=== PATIENT | female | born 1970 | race Caucasian/White ===

== ENCOUNTER 2021-01-31 12:08 | Inpatient (IN) | payer OTHER ==
[2021-01-31] MEDS ORDERED: P-EPHED 60MG/TRIPROLIDI 2.5MG TABLET PO PRN (14:01)
[2021-01-31] MEDS ORDERED: guaiFENesin 200 MG/10 ML 10 ML UNIT-DOSE CUPS PO PRN (14:01)
[2021-01-31] MEDS ORDERED: LOPERAMIDE HCL 2 MG CAPSULE PO PRN (14:01)
[2021-01-31] MEDS ORDERED: MAGNESIUM CITRATE 300 ML BOTTLE PO PRN (14:01)
[2021-01-31] MEDS ORDERED: NICOTINE 7 MG/24 HOURS TOPICAL PATCH TD SCH (14:15)
[2021-01-31 14:21] VITALS: BMI 21.9
[2021-01-31] MEDS: PRENATAL VITAMINS W/ FOLIC ACID TABLET (FP) PO SCH (15:51)
[2021-01-31] MEDS ORDERED: TUBERCULIN PPD 5 TU/0.1ML VIAL ID ONE (15:52)
[2021-01-31 17:09] LABS: HEMATOCRIT 39.2 % (32.4-45.2); HEMOGLOBIN 12.8 GM/dL (10.7-15.3); MCH 28.5 pg (25.7-33.7); MCHC 32.6 g/dl (32.0-36.0); MEAN CELL VOLUME 87.2 fl (80-96); PLATELET COUNT 248 10^3/uL (134-434); RBC 4.49 M/mm3 (3.60-5.2); RDW 14.1 % (11.6-15.6); WHITE BLOOD COUNT 5.1 K/mm3 (4.0-10.0)
[2021-01-31 17:12] LABS: ALBUMIN 3.1 g/dl (3.4-5.0); BLOOD UREA NITROGEN 14.8 mg/dL (7-18); CALCIUM 8.6 mg/dL (8.5-10.1)
[2021-01-31 17:17] LABS: BILIRUBIN,TOTAL 0.2 mg/dL (0.2-1); TOT PROT 6.9 g/dl (6.4-8.2)
[2021-01-31 17:39] LABS: SYPHILIS W/ RPR CONF NON-REACTIVE (NONREACTIVE)
[2021-01-31] MEDS ORDERED: hydrOXYzine PAMOATE 25 MG CAPSULE (FP) PO SCH (18:00)
[2021-01-31 18:06] LABS: HIV INTERPRETATION NEGATIVE (NEGATIVE)
[2021-01-31] MEDS: NICOTINE 10 MG CARTRIDGE (INHALER) IH PRN (18:17)
[2021-01-31] MEDS: THIAMINE HCL 100 MG TABLET (FP) PO SCH (21:51)
[2021-01-31] MEDS: MELATONIN 5 MG TABLETS PO SCH (21:52)
[2021-02-01] MEDS ORDERED: methaDONE HCL 10 MG TABLET ONE (07:16)
[2021-02-01] MEDS ORDERED: methaDONE HCL 40 MG DISPERSABLE TABLET ONE (07:17)
[2021-02-01] MEDS ORDERED: methaDONE HCL 40 MG DISPERSABLE TABLET PO SCH (10:00)
[2021-02-01] MEDS: NICOTINE 14 MG/24 HOURS TOPICAL PATCH TD SCH (11:13)
[2021-02-01] MEDS: PRENATAL VITAMINS W/ FOLIC ACID TABLET (FP) PO SCH (11:14)
[2021-02-01] MEDS: NICOTINE 10 MG CARTRIDGE (INHALER) IH PRN (11:14)
[2021-02-01] MEDS ORDERED: NICOTINE POLACRILEX 2 MG GUM BUC PRN (12:51)
[2021-02-01] MEDS: MELATONIN 5 MG TABLETS PO SCH (22:16)
[2021-02-01] MEDS: THIAMINE HCL 100 MG TABLET (FP) PO SCH (22:16)
[2021-02-01] MEDS: BACITRACIN 0.9 GM PACKET TP SCH (22:16)
[2021-02-01 23:13] LABS: EPI CELLS 15 /uL (0-25.1); HYALINE CASTS 4 /uL (0-3.1); PH,URINE 5.5 (5.0-8.0); URINE APPEARANCE CLOUDY; URINE BACTERIA 522 /uL (0-1359); URINE BILIRUBIN NEGATIVE (NEGATIVE); URINE COLOR YELLOW; URINE GLUCOSE (UA) NEGATIVE (NEGATIVE); URINE KETONE TRACE (NEGATIVE); URINE LEUK ESTERASE 3+ (NEGATIVE); URINE NITRITE NEGATIVE (NEGATIVE); URINE PROTEIN NEGATIVE (NEGATIVE); URINE RBC 18 /uL (0-23.9); URINE UROBILINOGEN 0.2 mg/dL (0.2-1.0); URINE WBC 708 /uL (0-25.8)
[2021-02-02] MEDS ORDERED: methaDONE HCL 10 MG TABLET ONE (03:41)
[2021-02-02] MEDS ORDERED: methaDONE HCL 40 MG DISPERSABLE TABLET ONE (03:42)
[2021-02-02] MEDS: BACITRACIN 0.9 GM PACKET TP SCH ×2 (10:44→21:44)
[2021-02-02] MEDS: NICOTINE 14 MG/24 HOURS TOPICAL PATCH TD SCH (10:44)
[2021-02-02] MEDS: PRENATAL VITAMINS W/ FOLIC ACID TABLET (FP) PO SCH (10:44)
[2021-02-02] MEDS: MELATONIN 5 MG TABLETS PO SCH (21:41)
[2021-02-02] MEDS: THIAMINE HCL 100 MG TABLET (FP) PO SCH (21:41)
[2021-02-02] MEDS: ACETAMINOPHEN 325 MG TABLET (FP) PO PRN (21:42)
[2021-02-03] MEDS ORDERED: methaDONE HCL 10 MG TABLET ONE (03:34)
[2021-02-03] MEDS ORDERED: methaDONE HCL 40 MG DISPERSABLE TABLET ONE (03:35)
[2021-02-03] MEDS: PRENATAL VITAMINS W/ FOLIC ACID TABLET (FP) PO SCH (10:55)
[2021-02-03] MEDS: BACITRACIN 0.9 GM PACKET TP SCH ×2 (10:55→22:08)
[2021-02-03] MEDS: NICOTINE 10 MG CARTRIDGE (INHALER) IH PRN (10:56)
[2021-02-03] MEDS: NICOTINE 14 MG/24 HOURS TOPICAL PATCH TD SCH (10:56)
[2021-02-03] MEDS: MAGNESIUM HYDROX 2400MG/30ML ORAL SUSPENSION 30 ML CUP PO PRN (11:09)
[2021-02-03] MEDS: MELATONIN 5 MG TABLETS PO SCH (22:08)
[2021-02-03] MEDS: THIAMINE HCL 100 MG TABLET (FP) PO SCH (22:08)
[2021-02-04] MEDS ORDERED: methaDONE HCL 40 MG DISPERSABLE TABLET ONE (04:11)
[2021-02-04] MEDS ORDERED: methaDONE HCL 10 MG TABLET ONE (04:11)
[2021-02-04] MEDS: NICOTINE 14 MG/24 HOURS TOPICAL PATCH TD SCH (10:26)
[2021-02-04] MEDS: PRENATAL VITAMINS W/ FOLIC ACID TABLET (FP) PO SCH (10:26)
[2021-02-04] MEDS: BACITRACIN 0.9 GM PACKET TP SCH ×2 (10:26→22:23)
[2021-02-04] MEDS: MELATONIN 5 MG TABLETS PO SCH (22:24)
[2021-02-04] MEDS: ACETAMINOPHEN 325 MG TABLET (FP) PO PRN (22:25)
[2021-02-04] MEDS: THIAMINE HCL 100 MG TABLET (FP) PO SCH (22:26)
[2021-02-05] MEDS: IBUPROFEN 400 MG TABLET (FP) PO PRN (01:59)
[2021-02-05] MEDS ORDERED: methaDONE HCL 40 MG DISPERSABLE TABLET ONE (04:06)
[2021-02-05] MEDS ORDERED: methaDONE HCL 10 MG TABLET ONE (04:06)
[2021-02-05] MEDS: NICOTINE 14 MG/24 HOURS TOPICAL PATCH TD SCH (10:35)
[2021-02-05] MEDS: PRENATAL VITAMINS W/ FOLIC ACID TABLET (FP) PO SCH (10:35)
[2021-02-05] MEDS: BACITRACIN 0.9 GM PACKET TP SCH ×2 (10:35→22:08)
[2021-02-05] MEDS: NICOTINE 10 MG CARTRIDGE (INHALER) IH PRN (21:41)
[2021-02-05] MEDS: THIAMINE HCL 100 MG TABLET (FP) PO SCH (22:08)
[2021-02-05] MEDS: MELATONIN 5 MG TABLETS PO SCH (22:08)
[2021-02-06] MEDS ORDERED: methaDONE HCL 10 MG TABLET ONE (03:24)
[2021-02-06] MEDS ORDERED: methaDONE HCL 40 MG DISPERSABLE TABLET ONE (03:24)
[2021-02-06] MEDS: BACITRACIN 0.9 GM PACKET TP SCH ×2 (10:59→22:03)
[2021-02-06] MEDS: MAG HYDROX/AL HYDROX/SIMETH 30 ML UNIT-DOSE CUP PO PRN (11:00)
[2021-02-06] MEDS: NICOTINE 14 MG/24 HOURS TOPICAL PATCH TD SCH (11:00)
[2021-02-06] MEDS: PRENATAL VITAMINS W/ FOLIC ACID TABLET (FP) PO SCH (11:00)
[2021-02-06] MEDS: MELATONIN 5 MG TABLETS PO SCH (22:03)
[2021-02-06] MEDS: THIAMINE HCL 100 MG TABLET (FP) PO SCH (22:03)
[2021-02-07] MEDS ORDERED: methaDONE HCL 10 MG TABLET ONE (04:18)
[2021-02-07] MEDS ORDERED: methaDONE HCL 40 MG DISPERSABLE TABLET ONE (04:18)
[2021-02-07] MEDS: NICOTINE 14 MG/24 HOURS TOPICAL PATCH TD SCH (10:33)
[2021-02-07] MEDS: BACITRACIN 0.9 GM PACKET TP SCH ×2 (10:33→22:20)
[2021-02-07] MEDS: PRENATAL VITAMINS W/ FOLIC ACID TABLET (FP) PO SCH (10:33)
[2021-02-07] MEDS ORDERED: FUROSEMIDE 20 MG TABLET (FP) PO ONE (11:17)
[2021-02-07] MEDS: MELATONIN 5 MG TABLETS PO SCH (22:19)
[2021-02-07] MEDS: THIAMINE HCL 100 MG TABLET (FP) PO SCH (22:19)
[2021-02-07] MEDS: IBUPROFEN 400 MG TABLET (FP) PO PRN (22:21)
[2021-02-08] MEDS ORDERED: methaDONE HCL 10 MG TABLET ONE (03:15)
[2021-02-08] MEDS ORDERED: methaDONE HCL 40 MG DISPERSABLE TABLET ONE (03:16)
[2021-02-08] MEDS: PRENATAL VITAMINS W/ FOLIC ACID TABLET (FP) PO SCH (10:38)
[2021-02-08] MEDS: ACETAMINOPHEN 325 MG TABLET (FP) PO PRN (10:38)
[2021-02-08] MEDS: NICOTINE 14 MG/24 HOURS TOPICAL PATCH TD SCH (10:38)
[2021-02-08] MEDS: BACITRACIN 0.9 GM PACKET TP SCH ×2 (10:38→22:00)
[2021-02-08] MEDS: NICOTINE 10 MG CARTRIDGE (INHALER) IH PRN (10:38)
[2021-02-08] MEDS: THIAMINE HCL 100 MG TABLET (FP) PO SCH (21:59)
[2021-02-08] MEDS: MELATONIN 5 MG TABLETS PO SCH (21:59)
[2021-02-09] MEDS ORDERED: methaDONE HCL 10 MG TABLET ONE (07:08)
[2021-02-09] MEDS ORDERED: methaDONE HCL 40 MG DISPERSABLE TABLET ONE (07:08)
[2021-02-09] MEDS: MAG HYDROX/AL HYDROX/SIMETH 30 ML UNIT-DOSE CUP PO PRN (07:09)
[2021-02-09] MEDS: BACITRACIN 0.9 GM PACKET TP SCH ×2 (10:43→22:13)
[2021-02-09] MEDS: NICOTINE 10 MG CARTRIDGE (INHALER) IH PRN (10:44)
[2021-02-09] MEDS: NICOTINE 14 MG/24 HOURS TOPICAL PATCH TD SCH (10:44)
[2021-02-09] MEDS: PRENATAL VITAMINS W/ FOLIC ACID TABLET (FP) PO SCH (10:44)
[2021-02-09] MEDS: MELATONIN 5 MG TABLETS PO SCH (22:13)
[2021-02-09] MEDS: THIAMINE HCL 100 MG TABLET (FP) PO SCH (22:13)
[2021-02-09] MEDS: MAGNESIUM HYDROX 2400MG/30ML ORAL SUSPENSION 30 ML CUP PO PRN (22:15)
[2021-02-10] MEDS ORDERED: methaDONE HCL 10 MG TABLET ONE (02:11)
[2021-02-10] MEDS ORDERED: methaDONE HCL 40 MG DISPERSABLE TABLET ONE (02:12)
[2021-02-10] MEDS: PRENATAL VITAMINS W/ FOLIC ACID TABLET (FP) PO SCH (11:08)
[2021-02-10] MEDS: NICOTINE 14 MG/24 HOURS TOPICAL PATCH TD SCH (11:08)
[2021-02-10] MEDS: BACITRACIN 0.9 GM PACKET TP SCH ×2 (11:08→23:26)
[2021-02-10] MEDS: MELATONIN 5 MG TABLETS PO SCH (22:02)
[2021-02-10] MEDS: THIAMINE HCL 100 MG TABLET (FP) PO SCH (22:02)
[2021-02-10] MEDS: MAG HYDROX/AL HYDROX/SIMETH 30 ML UNIT-DOSE CUP PO PRN (22:03)
[2021-02-11] MEDS ORDERED: methaDONE HCL 10 MG TABLET ONE (04:25)
[2021-02-11] MEDS ORDERED: methaDONE HCL 40 MG DISPERSABLE TABLET ONE (04:25)
[2021-02-11] MEDS: BACITRACIN 0.9 GM PACKET TP SCH ×2 (10:39→21:56)
[2021-02-11] MEDS: NICOTINE 14 MG/24 HOURS TOPICAL PATCH TD SCH (10:39)
[2021-02-11] MEDS: PRENATAL VITAMINS W/ FOLIC ACID TABLET (FP) PO SCH (10:39)
[2021-02-11] MEDS: NICOTINE 10 MG CARTRIDGE (INHALER) IH PRN (10:39)
[2021-02-11] MEDS: MELATONIN 5 MG TABLETS PO SCH (21:55)
[2021-02-11] MEDS: THIAMINE HCL 100 MG TABLET (FP) PO SCH (21:55)
[2021-02-11] MEDS: MAG HYDROX/AL HYDROX/SIMETH 30 ML UNIT-DOSE CUP PO PRN (21:56)
[2021-02-12] MEDS ORDERED: methaDONE HCL 10 MG TABLET ONE (03:40)
[2021-02-12] MEDS ORDERED: methaDONE HCL 40 MG DISPERSABLE TABLET ONE (03:40)
[2021-02-12] MEDS: MAG HYDROX/AL HYDROX/SIMETH 30 ML UNIT-DOSE CUP PO PRN (10:43)
[2021-02-12] MEDS: PRENATAL VITAMINS W/ FOLIC ACID TABLET (FP) PO SCH (10:43)
[2021-02-12] MEDS: BACITRACIN 0.9 GM PACKET TP SCH ×2 (10:43→21:58)
[2021-02-12] MEDS: NICOTINE 14 MG/24 HOURS TOPICAL PATCH TD SCH (10:43)
[2021-02-12] MEDS: THIAMINE HCL 100 MG TABLET (FP) PO SCH (21:58)
[2021-02-12] MEDS: MELATONIN 5 MG TABLETS PO SCH (21:58)
[2021-02-13] MEDS ORDERED: methaDONE HCL 40 MG DISPERSABLE TABLET ONE (02:27)
[2021-02-13] MEDS ORDERED: methaDONE HCL 10 MG TABLET ONE (02:27)
[2021-02-13] MEDS: MAG HYDROX/AL HYDROX/SIMETH 30 ML UNIT-DOSE CUP PO PRN ×2 (11:08→21:19)
[2021-02-13] MEDS: PRENATAL VITAMINS W/ FOLIC ACID TABLET (FP) PO SCH (11:09)
[2021-02-13] MEDS: NICOTINE 14 MG/24 HOURS TOPICAL PATCH TD SCH (11:09)
[2021-02-13] MEDS: BACITRACIN 0.9 GM PACKET TP SCH ×2 (11:09→21:19)
[2021-02-13] MEDS: THIAMINE HCL 100 MG TABLET (FP) PO SCH (21:19)
[2021-02-13] MEDS: MELATONIN 5 MG TABLETS PO SCH (21:20)
[2021-02-14] MEDS ORDERED: methaDONE HCL 10 MG TABLET ONE (07:14)
[2021-02-14] MEDS ORDERED: methaDONE HCL 40 MG DISPERSABLE TABLET ONE (07:14)
[2021-02-14] MEDS ORDERED: COLLOIDAL OATMEAL 1 BAR EACH TP PRN (09:15)
[2021-02-14] MEDS: BACITRACIN 0.9 GM PACKET TP SCH ×2 (10:54→22:04)
[2021-02-14] MEDS: PRENATAL VITAMINS W/ FOLIC ACID TABLET (FP) PO SCH (10:54)
[2021-02-14] MEDS: NICOTINE 14 MG/24 HOURS TOPICAL PATCH TD SCH (10:54)
[2021-02-14] MEDS: MAG HYDROX/AL HYDROX/SIMETH 30 ML UNIT-DOSE CUP PO PRN (10:55)
[2021-02-14] MEDS: ACETAMINOPHEN 325 MG TABLET (FP) PO PRN (12:12)
[2021-02-14] MEDS ORDERED: SIMETHICONE 80 MG TAB.CHEW (FP) PO PRN (12:54)
[2021-02-14] MEDS ORDERED: ACETAMINOPHEN 325 MG TABLET (FP) PO PRN (12:55)
[2021-02-14] MEDS: MELATONIN 5 MG TABLETS PO SCH (22:04)
[2021-02-14] MEDS: THIAMINE HCL 100 MG TABLET (FP) PO SCH (22:05)
[2021-02-15] MEDS ORDERED: methaDONE HCL 40 MG DISPERSABLE TABLET ONE (03:32)
[2021-02-15] MEDS ORDERED: methaDONE HCL 10 MG TABLET ONE (03:32)
[2021-02-15] MEDS: NICOTINE 14 MG/24 HOURS TOPICAL PATCH TD SCH (10:47)
[2021-02-15] MEDS: BACITRACIN 0.9 GM PACKET TP SCH ×2 (10:47→21:39)
[2021-02-15] MEDS: PRENATAL VITAMINS W/ FOLIC ACID TABLET (FP) PO SCH (10:47)
[2021-02-15] MEDS: MELATONIN 5 MG TABLETS PO SCH (21:39)
[2021-02-15] MEDS: THIAMINE HCL 100 MG TABLET (FP) PO SCH (21:39)
[2021-02-16] MEDS: ACETAMINOPHEN 325 MG TABLET (FP) PO PRN (01:49)
[2021-02-16] MEDS ORDERED: methaDONE HCL 10 MG TABLET ONE (03:05)
[2021-02-16] MEDS ORDERED: methaDONE HCL 40 MG DISPERSABLE TABLET ONE (03:05)
[2021-02-16] MEDS: PRENATAL VITAMINS W/ FOLIC ACID TABLET (FP) PO SCH (11:19)
[2021-02-16] MEDS: NICOTINE 14 MG/24 HOURS TOPICAL PATCH TD SCH (11:19)
[2021-02-16] MEDS: BACITRACIN 0.9 GM PACKET TP SCH ×2 (11:19→22:08)
[2021-02-16] MEDS: MELATONIN 5 MG TABLETS PO SCH (22:08)
[2021-02-16] MEDS: THIAMINE HCL 100 MG TABLET (FP) PO SCH (22:09)
[2021-02-17] MEDS ORDERED: methaDONE HCL 10 MG TABLET ONE (04:05)
[2021-02-17] MEDS ORDERED: methaDONE HCL 40 MG DISPERSABLE TABLET ONE (04:06)
[2021-02-17] MEDS: BACITRACIN 0.9 GM PACKET TP SCH ×2 (10:33→22:13)
[2021-02-17] MEDS: NICOTINE 14 MG/24 HOURS TOPICAL PATCH TD SCH (11:20)
[2021-02-17] MEDS: PRENATAL VITAMINS W/ FOLIC ACID TABLET (FP) PO SCH (11:21)
[2021-02-17] MEDS: TOLNAFTATE 1% CREAM 15 GM TUBE TP SCH (22:13)
[2021-02-17] MEDS: THIAMINE HCL 100 MG TABLET (FP) PO SCH (22:13)
[2021-02-17] MEDS: MELATONIN 5 MG TABLETS PO SCH (22:13)
[2021-02-18] MEDS ORDERED: methaDONE HCL 40 MG DISPERSABLE TABLET ONE (03:13)
[2021-02-18] MEDS ORDERED: methaDONE HCL 10 MG TABLET ONE (03:13)
[2021-02-18] MEDS: BACITRACIN 0.9 GM PACKET TP SCH ×2 (11:38→22:15)
[2021-02-18] MEDS: TOLNAFTATE 1% CREAM 15 GM TUBE TP SCH ×2 (11:39→22:15)
[2021-02-18] MEDS: NICOTINE 14 MG/24 HOURS TOPICAL PATCH TD SCH (11:39)
[2021-02-18] MEDS: PRENATAL VITAMINS W/ FOLIC ACID TABLET (FP) PO SCH (11:39)
[2021-02-18] MEDS: THIAMINE HCL 100 MG TABLET (FP) PO SCH (22:15)
[2021-02-18] MEDS: MELATONIN 5 MG TABLETS PO SCH (22:15)
[2021-02-19] MEDS ORDERED: methaDONE HCL 10 MG TABLET ONE (03:20)
[2021-02-19] MEDS ORDERED: methaDONE HCL 40 MG DISPERSABLE TABLET ONE (03:20)
[2021-02-19] MEDS: PRENATAL VITAMINS W/ FOLIC ACID TABLET (FP) PO SCH (10:32)
[2021-02-19] MEDS: NICOTINE 14 MG/24 HOURS TOPICAL PATCH TD SCH (10:33)
[2021-02-19] MEDS: TOLNAFTATE 1% CREAM 15 GM TUBE TP SCH ×2 (10:33→22:08)
[2021-02-19] MEDS: BACITRACIN 0.9 GM PACKET TP SCH ×2 (10:33→22:08)
[2021-02-19] MEDS: ACETAMINOPHEN 325 MG TABLET (FP) PO PRN (12:18)
[2021-02-19] MEDS: MELATONIN 5 MG TABLETS PO SCH (22:08)
[2021-02-19] MEDS: THIAMINE HCL 100 MG TABLET (FP) PO SCH (22:08)
[2021-02-20] MEDS ORDERED: methaDONE HCL 10 MG TABLET ONE (05:36)
[2021-02-20] MEDS ORDERED: methaDONE HCL 40 MG DISPERSABLE TABLET ONE (05:36)
[2021-02-20] MEDS: TOLNAFTATE 1% CREAM 15 GM TUBE TP SCH ×2 (10:39→22:50)
[2021-02-20] MEDS: PRENATAL VITAMINS W/ FOLIC ACID TABLET (FP) PO SCH (10:40)
[2021-02-20] MEDS: NICOTINE 14 MG/24 HOURS TOPICAL PATCH TD SCH (10:40)
[2021-02-20] MEDS: BACITRACIN 0.9 GM PACKET TP SCH ×2 (10:40→22:49)
[2021-02-20] MEDS: NICOTINE 10 MG CARTRIDGE (INHALER) IH PRN (16:44)
[2021-02-20] MEDS: ACETAMINOPHEN 325 MG TABLET (FP) PO PRN (21:53)
[2021-02-20] MEDS: THIAMINE HCL 100 MG TABLET (FP) PO SCH (22:50)
[2021-02-20] MEDS: MELATONIN 5 MG TABLETS PO SCH (22:50)
[2021-02-21] MEDS ORDERED: methaDONE HCL 40 MG DISPERSABLE TABLET PO SCH (06:40)
[2021-02-21] MEDS ORDERED: methaDONE HCL 40 MG DISPERSABLE TABLET ONE (06:55)
[2021-02-21] MEDS ORDERED: methaDONE HCL 10 MG TABLET ONE (06:55)
[2021-02-21 07:32] VITALS: BP 93/45; PULSE 68; TEMP 97.9
[2021-02-21] MEDS: NICOTINE 14 MG/24 HOURS TOPICAL PATCH TD SCH (10:36)
[2021-02-21] MEDS: NICOTINE 10 MG CARTRIDGE (INHALER) IH PRN (10:36)
[2021-02-21] MEDS: PRENATAL VITAMINS W/ FOLIC ACID TABLET (FP) PO SCH (10:37)
[2021-02-21] MEDS: BACITRACIN 0.9 GM PACKET TP SCH (10:37)
[2021-02-21] MEDS: TOLNAFTATE 1% CREAM 15 GM TUBE TP SCH (10:39)
== END 2021-02-21 11:25 | disposition home or self-care (01) | DRG 772 ==
LOC: YASAS 12:08 → Y5N 14:25
PROVIDERS: ADMIT Allergy & Immunology; ATTEND Allergy & Immunology
PROC: HZ42ZZZ Group Counseling for Substance Abuse Treatment, Cognitive-Behavioral (ICD-10-PCS; principal; 2021-01-31)
DX: F10.20 Alcohol dependence, uncomplicated (principal); F11.20 Opioid dependence, uncomplicated; F14.20 Cocaine dependence, uncomplicated; F17.210 Nicotine dependence, cigarettes, uncomplicated; F25.9 Schizoaffective disorder, unspecified; F19.282 Other psychoactive substance dependence with psychoactive substance-induced sleep disorder; F19.280 Other psychoactive substance dependence with psychoactive substance-induced anxiety disorder; R60.0 Localized edema; M06.9 Rheumatoid arthritis, unspecified; M19.90 Unspecified osteoarthritis, unspecified site; G35 Multiple sclerosis; M54.59 Other low back pain; G89.29 Other chronic pain; M51.37 Other intervertebral disc degeneration, lumbosacral region; S61.001A Unspecified open wound of right thumb without damage to nail, initial encounter; X58.XXXA Exposure to other specified factors, initial encounter; Y93.9 Activity, unspecified; Y92.9 Unspecified place or not applicable; R26.2 Difficulty in walking, not elsewhere classified; Z99.89 Dependence on other enabling machines and devices; Z88.0 Allergy status to penicillin; Z62.810 Personal history of physical and sexual abuse in childhood; Z91.51 Personal history of suicidal behavior; Z56.0 Unemployment, unspecified
CPT/HCPCS: 36415; 80053; 81003; 81025; 85027; 86780; 86803; 87389; 87522; 87811; C9803; U0003; U0005

== ENCOUNTER 2022-04-27 11:01 | Inpatient (IN) | payer OTHER ==
[2022-04-27] MEDS ORDERED: MAGNESIUM HYDROX 2400MG/30ML ORAL SUSPENSION 30 ML CUP PO PRN (11:51)
[2022-04-27] MEDS ORDERED: NALOXONE HCL (KLOXXADO) 8 MG SPRAY NS PRN (11:51)
[2022-04-27] MEDS ORDERED: LOPERAMIDE HCL 2 MG CAPSULE PO PRN (11:51)
[2022-04-27] MEDS ORDERED: P-EPHED 60MG/TRIPROLIDI 2.5MG TABLET PO PRN (11:51)
[2022-04-27] MEDS ORDERED: hydrOXYzine PAMOATE 25 MG CAPSULE (FP) PO PRN (11:51)
[2022-04-27] MEDS ORDERED: guaiFENesin 200 MG/10 ML 10 ML UNIT-DOSE CUPS PO PRN (11:51)
[2022-04-27] MEDS ORDERED: BENZOCAINE/MENTHOL (CHLORASEPTIC ) LOZENGE MM PRN (11:51)
[2022-04-27] MEDS ORDERED: POLYETHYLENE GLYCOL (HEALTHYLAX) 3350 17 GM PACKET PO PRN (11:51)
[2022-04-27] MEDS: NICOTINE 7 MG/24 HOURS TOPICAL PATCH TD SCH (12:00)
[2022-04-27] MEDS: PRENATAL VITAMINS W/ FOLIC ACID TABLET (FP) PO SCH (12:20)
[2022-04-27 17:33] LABS: HEMATOCRIT 39.3 % (32.4-45.2); HEMOGLOBIN 12.8 GM/dL (10.7-15.3); MCH 28.1 pg (25.7-33.7); MCHC 32.6 g/dl (32.0-36.0); MEAN CELL VOLUME 86.3 fl (80-96); MEAN PLT VOLUME 9.4 fl (7.5-11.1); PLATELET COUNT 204 10^3/uL (134-434); RBC 4.56 M/mm3 (3.60-5.2); RDW 14.2 % (11.6-15.6)
[2022-04-27 17:39] LABS: CALCIUM 8.6 mg/dL (8.5-10.1)
[2022-04-27 17:40] LABS: ALBUMIN 3.7 g/dl (3.4-5.0); BLOOD UREA NITROGEN 18.5 mg/dL (7-18)
[2022-04-27 17:43] LABS: CREATININE 0.8 mg/dL (0.55-1.3)
[2022-04-27 17:44] LABS: BILIRUBIN,TOTAL 0.5 mg/dL (0.2-1); TOT PROT 7.4 g/dl (6.4-8.2)
[2022-04-27 18:10] LABS: SYPHILIS W/ RPR CONF NON-REACTIVE (NONREACTIVE)
[2022-04-27] MEDS: THIAMINE HCL 100 MG TABLET (FP) PO SCH (21:33)
[2022-04-27] MEDS: MELATONIN 5 MG TABLETS PO SCH (21:33)
[2022-04-28] MEDS ORDERED: methaDONE HCL 10 MG TABLET PO SCH (09:00)
[2022-04-28] MEDS: PRENATAL VITAMINS W/ FOLIC ACID TABLET (FP) PO SCH (10:16)
[2022-04-28] MEDS: methaDONE HCL 40 MG DISPERSABLE TABLET PO SCH (10:16)
[2022-04-28] MEDS: NICOTINE 7 MG/24 HOURS TOPICAL PATCH TD SCH (10:17)
[2022-04-28] MEDS: NICOTINE 10 MG CARTRIDGE (INHALER) IH PRN (10:18)
[2022-04-28] MEDS: LACTULOSE 20 GM/30 ML UDC (FOR ORAL USE ONLY) PO SCH ×2 (11:01→22:07)
[2022-04-28] MEDS: MELATONIN 5 MG TABLETS PO SCH (22:07)
[2022-04-28] MEDS: THIAMINE HCL 100 MG TABLET (FP) PO SCH (22:07)
[2022-04-29 00:08] LABS: URINE APPEARANCE CLEAR; URINE BILIRUBIN NEGATIVE (NEGATIVE); URINE COLOR YELLOW; URINE GLUCOSE (UA) NEGATIVE (NEGATIVE); URINE KETONE NEGATIVE (NEGATIVE); URINE LEUK ESTERASE NEGATIVE (NEGATIVE); URINE NITRITE NEGATIVE (NEGATIVE); URINE PROTEIN NEGATIVE (NEGATIVE); URINE UROBILINOGEN 0.2 mg/dL (0.2-1.0)
[2022-04-29] MEDS: methaDONE HCL 40 MG DISPERSABLE TABLET PO SCH (06:15)
[2022-04-29] MEDS: PRENATAL VITAMINS W/ FOLIC ACID TABLET (FP) PO SCH (10:10)
[2022-04-29] MEDS: NICOTINE 7 MG/24 HOURS TOPICAL PATCH TD SCH (10:10)
[2022-04-29] MEDS: LACTULOSE 20 GM/30 ML UDC (FOR ORAL USE ONLY) PO SCH ×2 (10:11→22:16)
[2022-04-29] MEDS: MELATONIN 5 MG TABLETS PO SCH (22:16)
[2022-04-29] MEDS: THIAMINE HCL 100 MG TABLET (FP) PO SCH (22:16)
[2022-04-30] MEDS: MAG HYDROX/AL HYDROX/SIMETH 30 ML UNIT-DOSE CUP PO PRN ×2 (00:02→21:36)
[2022-04-30] MEDS: IBUPROFEN 400 MG TABLET (FP) PO PRN ×2 (02:59→21:35)
[2022-04-30] MEDS: methaDONE HCL 40 MG DISPERSABLE TABLET PO SCH (06:08)
[2022-04-30] MEDS: NICOTINE 10 MG CARTRIDGE (INHALER) IH PRN (10:19)
[2022-04-30] MEDS: LACTULOSE 20 GM/30 ML UDC (FOR ORAL USE ONLY) PO SCH ×2 (10:19→21:33)
[2022-04-30] MEDS: PRENATAL VITAMINS W/ FOLIC ACID TABLET (FP) PO SCH (10:19)
[2022-04-30] MEDS: NICOTINE 7 MG/24 HOURS TOPICAL PATCH TD SCH (10:19)
[2022-04-30] MEDS: MELATONIN 5 MG TABLETS PO SCH (21:33)
[2022-04-30] MEDS: THIAMINE HCL 100 MG TABLET (FP) PO SCH (21:33)
[2022-05-01] MEDS: ACETAMINOPHEN 325 MG TABLET (FP) PO PRN (02:05)
[2022-05-01] MEDS: methaDONE HCL 40 MG DISPERSABLE TABLET PO SCH (06:07)
[2022-05-01] MEDS: LACTULOSE 20 GM/30 ML UDC (FOR ORAL USE ONLY) PO SCH ×2 (10:21→21:29)
[2022-05-01] MEDS: PRENATAL VITAMINS W/ FOLIC ACID TABLET (FP) PO SCH (10:21)
[2022-05-01] MEDS: NICOTINE 7 MG/24 HOURS TOPICAL PATCH TD SCH (10:21)
[2022-05-01] MEDS: IBUPROFEN 400 MG TABLET (FP) PO PRN (21:29)
[2022-05-01] MEDS: THIAMINE HCL 100 MG TABLET (FP) PO SCH (21:29)
[2022-05-01] MEDS: MELATONIN 5 MG TABLETS PO SCH (21:29)
[2022-05-02] MEDS: ACETAMINOPHEN 325 MG TABLET (FP) PO PRN (01:29)
[2022-05-02] MEDS: MAG HYDROX/AL HYDROX/SIMETH 30 ML UNIT-DOSE CUP PO PRN ×2 (01:31→20:16)
[2022-05-02] MEDS: methaDONE HCL 40 MG DISPERSABLE TABLET PO SCH (07:02)
[2022-05-02] MEDS: PRENATAL VITAMINS W/ FOLIC ACID TABLET (FP) PO SCH (10:18)
[2022-05-02] MEDS: LACTULOSE 20 GM/30 ML UDC (FOR ORAL USE ONLY) PO SCH ×2 (10:18→22:07)
[2022-05-02] MEDS: NICOTINE 7 MG/24 HOURS TOPICAL PATCH TD SCH (10:18)
[2022-05-02] MEDS: MELATONIN 5 MG TABLETS PO SCH (21:33)
[2022-05-02] MEDS: THIAMINE HCL 100 MG TABLET (FP) PO SCH (21:33)
[2022-05-03] MEDS: methaDONE HCL 40 MG DISPERSABLE TABLET PO SCH (06:48)
[2022-05-03] MEDS: LACTULOSE 20 GM/30 ML UDC (FOR ORAL USE ONLY) PO SCH ×2 (10:41→21:27)
[2022-05-03] MEDS: PRENATAL VITAMINS W/ FOLIC ACID TABLET (FP) PO SCH (10:41)
[2022-05-03] MEDS: NICOTINE 7 MG/24 HOURS TOPICAL PATCH TD SCH (10:41)
[2022-05-03] MEDS: MAG HYDROX/AL HYDROX/SIMETH 30 ML UNIT-DOSE CUP PO PRN (17:56)
[2022-05-03] MEDS: MELATONIN 5 MG TABLETS PO SCH (21:27)
[2022-05-03] MEDS: THIAMINE HCL 100 MG TABLET (FP) PO SCH (21:27)
[2022-05-04] MEDS: MAG HYDROX/AL HYDROX/SIMETH 30 ML UNIT-DOSE CUP PO PRN (03:26)
[2022-05-04] MEDS: methaDONE HCL 40 MG DISPERSABLE TABLET PO SCH (06:47)
[2022-05-04] MEDS: NICOTINE 7 MG/24 HOURS TOPICAL PATCH TD SCH (10:31)
[2022-05-04] MEDS: IBUPROFEN 400 MG TABLET (FP) PO PRN (10:31)
[2022-05-04] MEDS: PRENATAL VITAMINS W/ FOLIC ACID TABLET (FP) PO SCH (10:31)
[2022-05-04] MEDS: MELATONIN 5 MG TABLETS PO SCH (21:40)
[2022-05-04] MEDS: THIAMINE HCL 100 MG TABLET (FP) PO SCH (21:41)
[2022-05-05] MEDS: methaDONE HCL 40 MG DISPERSABLE TABLET PO SCH (06:18)
[2022-05-05] MEDS: NICOTINE 7 MG/24 HOURS TOPICAL PATCH TD SCH (10:53)
[2022-05-05] MEDS: PRENATAL VITAMINS W/ FOLIC ACID TABLET (FP) PO SCH (10:53)
[2022-05-05] MEDS: THIAMINE HCL 100 MG TABLET (FP) PO SCH (22:04)
[2022-05-05] MEDS: MELATONIN 5 MG TABLETS PO SCH (22:04)
[2022-05-05] MEDS: MAG HYDROX/AL HYDROX/SIMETH 30 ML UNIT-DOSE CUP PO PRN (22:05)
[2022-05-06] MEDS: methaDONE HCL 40 MG DISPERSABLE TABLET PO SCH (06:02)
[2022-05-06] MEDS: MAG HYDROX/AL HYDROX/SIMETH 30 ML UNIT-DOSE CUP PO PRN ×2 (06:03→21:58)
[2022-05-06] MEDS: NICOTINE 10 MG CARTRIDGE (INHALER) IH PRN (09:57)
[2022-05-06] MEDS: PRENATAL VITAMINS W/ FOLIC ACID TABLET (FP) PO SCH (09:57)
[2022-05-06] MEDS: NICOTINE 7 MG/24 HOURS TOPICAL PATCH TD SCH (09:58)
[2022-05-06] MEDS: THIAMINE HCL 100 MG TABLET (FP) PO SCH (21:56)
[2022-05-06] MEDS: MELATONIN 5 MG TABLETS PO SCH (21:56)
[2022-05-07] MEDS: methaDONE HCL 40 MG DISPERSABLE TABLET PO SCH (06:32)
[2022-05-07] MEDS: NICOTINE 7 MG/24 HOURS TOPICAL PATCH TD SCH (10:27)
[2022-05-07] MEDS: PRENATAL VITAMINS W/ FOLIC ACID TABLET (FP) PO SCH (10:27)
[2022-05-07] MEDS: MAG HYDROX/AL HYDROX/SIMETH 30 ML UNIT-DOSE CUP PO PRN ×2 (10:29→21:22)
[2022-05-07] MEDS: MELATONIN 5 MG TABLETS PO SCH (21:21)
[2022-05-07] MEDS: THIAMINE HCL 100 MG TABLET (FP) PO SCH (21:21)
[2022-05-08] MEDS: methaDONE HCL 40 MG DISPERSABLE TABLET PO SCH (06:00)
[2022-05-08] MEDS: NICOTINE 7 MG/24 HOURS TOPICAL PATCH TD SCH (10:20)
[2022-05-08] MEDS: PRENATAL VITAMINS W/ FOLIC ACID TABLET (FP) PO SCH (10:20)
[2022-05-08] MEDS: MAG HYDROX/AL HYDROX/SIMETH 30 ML UNIT-DOSE CUP PO PRN ×2 (10:21→22:40)
[2022-05-08] MEDS ORDERED: SIMETHICONE 80 MG TAB.CHEW (FP) PO PRN (13:03)
[2022-05-08] MEDS: MELATONIN 5 MG TABLETS PO SCH ×2 (21:49→22:00)
[2022-05-08] MEDS: THIAMINE HCL 100 MG TABLET (FP) PO SCH (21:49)
[2022-05-09] MEDS: methaDONE HCL 40 MG DISPERSABLE TABLET PO SCH (06:00)
[2022-05-09] MEDS: NICOTINE 7 MG/24 HOURS TOPICAL PATCH TD SCH (10:26)
[2022-05-09] MEDS: PRENATAL VITAMINS W/ FOLIC ACID TABLET (FP) PO SCH (10:26)
[2022-05-09] MEDS: NICOTINE 10 MG CARTRIDGE (INHALER) IH PRN (10:28)
[2022-05-09] MEDS: MELATONIN 5 MG TABLETS PO SCH (21:50)
[2022-05-09] MEDS: THIAMINE HCL 100 MG TABLET (FP) PO SCH (21:50)
[2022-05-09] MEDS: MAG HYDROX/AL HYDROX/SIMETH 30 ML UNIT-DOSE CUP PO PRN (21:50)
[2022-05-10] MEDS: methaDONE HCL 40 MG DISPERSABLE TABLET PO SCH (06:44)
[2022-05-10] MEDS: IBUPROFEN 400 MG TABLET (FP) PO PRN (06:48)
[2022-05-10] MEDS: PRENATAL VITAMINS W/ FOLIC ACID TABLET (FP) PO SCH (10:41)
[2022-05-10] MEDS: NICOTINE 7 MG/24 HOURS TOPICAL PATCH TD SCH (10:41)
[2022-05-10] MEDS: MAG HYDROX/AL HYDROX/SIMETH 30 ML UNIT-DOSE CUP PO PRN (10:43)
[2022-05-10] MEDS: THIAMINE HCL 100 MG TABLET (FP) PO SCH (21:52)
[2022-05-10] MEDS: MELATONIN 5 MG TABLETS PO SCH (21:52)
[2022-05-11] MEDS: methaDONE HCL 40 MG DISPERSABLE TABLET PO SCH (07:05)
[2022-05-11] MEDS: PRENATAL VITAMINS W/ FOLIC ACID TABLET (FP) PO SCH (09:49)
[2022-05-11] MEDS: NICOTINE 7 MG/24 HOURS TOPICAL PATCH TD SCH (09:50)
[2022-05-11] MEDS: BACLOFEN 10 MG TABLET (FP) PO PRN (21:24)
[2022-05-11] MEDS: SUVOREXANT 10 MG TABLET PO PRN (21:25)
[2022-05-11] MEDS: THIAMINE HCL 100 MG TABLET (FP) PO SCH (21:25)
[2022-05-11] MEDS: IBUPROFEN 400 MG TABLET (FP) PO PRN (21:27)
[2022-05-12] MEDS: methaDONE HCL 40 MG DISPERSABLE TABLET PO SCH (07:12)
[2022-05-12] MEDS: PRENATAL VITAMINS W/ FOLIC ACID TABLET (FP) PO SCH (10:08)
[2022-05-12] MEDS: NICOTINE 7 MG/24 HOURS TOPICAL PATCH TD SCH (10:08)
[2022-05-12] MEDS: MAG HYDROX/AL HYDROX/SIMETH 30 ML UNIT-DOSE CUP PO PRN (10:10)
[2022-05-12] MEDS: THIAMINE HCL 100 MG TABLET (FP) PO SCH (22:01)
[2022-05-12] MEDS: SUVOREXANT 10 MG TABLET PO PRN (22:01)
[2022-05-13] MEDS ORDERED: TRIMETHOBENZAMIDE HCL 200MG/2ML INJ IM ONE (05:37)
[2022-05-13] MEDS ORDERED: BISMUTH SUBSALICYLATE 524 MG/30 ML PO PRN (06:25)
[2022-05-13] MEDS: ONDANSETRON *ODT* 4 MG TABLET SL PRN (11:13)
[2022-05-13] MEDS: NICOTINE 7 MG/24 HOURS TOPICAL PATCH TD SCH (11:41)
[2022-05-13] MEDS: PRENATAL VITAMINS W/ FOLIC ACID TABLET (FP) PO SCH (11:41)
[2022-05-13] MEDS: methaDONE HCL 40 MG DISPERSABLE TABLET PO SCH ×2 (11:42→12:17)
[2022-05-13] MEDS: SUVOREXANT 10 MG TABLET PO PRN (21:39)
[2022-05-13] MEDS: THIAMINE HCL 100 MG TABLET (FP) PO SCH (21:40)
[2022-05-14] MEDS: MAG HYDROX/AL HYDROX/SIMETH 30 ML UNIT-DOSE CUP PO PRN (04:59)
[2022-05-14] MEDS: methaDONE HCL 40 MG DISPERSABLE TABLET PO SCH (06:58)
[2022-05-14] MEDS: PRENATAL VITAMINS W/ FOLIC ACID TABLET (FP) PO SCH (09:57)
[2022-05-14] MEDS: IBUPROFEN 400 MG TABLET (FP) PO PRN (09:57)
[2022-05-14] MEDS: NICOTINE 7 MG/24 HOURS TOPICAL PATCH TD SCH (09:58)
[2022-05-14] MEDS: THIAMINE HCL 100 MG TABLET (FP) PO SCH (21:05)
[2022-05-14] MEDS: SUVOREXANT 10 MG TABLET PO PRN (21:05)
[2022-05-15] MEDS: BACLOFEN 10 MG TABLET (FP) PO PRN (07:30)
[2022-05-15] MEDS: methaDONE HCL 40 MG DISPERSABLE TABLET PO SCH (07:30)
[2022-05-15] MEDS: NICOTINE 7 MG/24 HOURS TOPICAL PATCH TD SCH (10:23)
[2022-05-15] MEDS: PRENATAL VITAMINS W/ FOLIC ACID TABLET (FP) PO SCH (10:23)
[2022-05-15] MEDS: MAG HYDROX/AL HYDROX/SIMETH 30 ML UNIT-DOSE CUP PO PRN ×2 (11:24→18:40)
[2022-05-15] MEDS: THIAMINE HCL 100 MG TABLET (FP) PO SCH (21:43)
[2022-05-16] MEDS: IBUPROFEN 400 MG TABLET (FP) PO PRN ×2 (01:48→19:16)
[2022-05-16] MEDS: BACLOFEN 10 MG TABLET (FP) PO PRN ×2 (01:48→21:31)
[2022-05-16] MEDS: methaDONE HCL 40 MG DISPERSABLE TABLET PO SCH (06:29)
[2022-05-16] MEDS: PRENATAL VITAMINS W/ FOLIC ACID TABLET (FP) PO SCH (09:37)
[2022-05-16] MEDS: NICOTINE 7 MG/24 HOURS TOPICAL PATCH TD SCH (09:37)
[2022-05-16] MEDS: SUVOREXANT 10 MG TABLET PO PRN (21:29)
[2022-05-16] MEDS: THIAMINE HCL 100 MG TABLET (FP) PO SCH (21:30)
[2022-05-17] MEDS: methaDONE HCL 40 MG DISPERSABLE TABLET PO SCH (06:33)
[2022-05-17] MEDS: PRENATAL VITAMINS W/ FOLIC ACID TABLET (FP) PO SCH (09:53)
[2022-05-17] MEDS: NICOTINE 7 MG/24 HOURS TOPICAL PATCH TD SCH (09:53)
[2022-05-17] MEDS: IBUPROFEN 400 MG TABLET (FP) PO PRN (09:54)
[2022-05-17] MEDS: THIAMINE HCL 100 MG TABLET (FP) PO SCH (22:06)
[2022-05-17] MEDS: BACLOFEN 10 MG TABLET (FP) PO PRN (22:07)
[2022-05-18] MEDS: SUVOREXANT 10 MG TABLET PO PRN (02:45)
[2022-05-18] MEDS: methaDONE HCL 40 MG DISPERSABLE TABLET PO SCH (06:44)
[2022-05-18] MEDS: NICOTINE 7 MG/24 HOURS TOPICAL PATCH TD SCH (09:40)
[2022-05-18] MEDS: PRENATAL VITAMINS W/ FOLIC ACID TABLET (FP) PO SCH (09:40)
[2022-05-18] MEDS: ONDANSETRON *ODT* 4 MG TABLET SL PRN (09:42)
[2022-05-18] MEDS: IBUPROFEN 400 MG TABLET (FP) PO PRN (14:10)
[2022-05-18] MEDS: THIAMINE HCL 100 MG TABLET (FP) PO SCH (21:39)
[2022-05-18] MEDS: BACLOFEN 10 MG TABLET (FP) PO PRN (21:42)
[2022-05-18] MEDS: SUVOREXANT 15 MG TABLET PO PRN (21:42)
[2022-05-19] MEDS: methaDONE HCL 40 MG DISPERSABLE TABLET PO SCH (06:51)
[2022-05-19] MEDS: NICOTINE 7 MG/24 HOURS TOPICAL PATCH TD SCH (10:22)
[2022-05-19] MEDS: PRENATAL VITAMINS W/ FOLIC ACID TABLET (FP) PO SCH (10:22)
[2022-05-19] MEDS: THIAMINE HCL 100 MG TABLET (FP) PO SCH (21:55)
[2022-05-19] MEDS: SUVOREXANT 15 MG TABLET PO PRN (21:56)
[2022-05-20] MEDS: methaDONE HCL 40 MG DISPERSABLE TABLET PO SCH (06:30)
[2022-05-20] MEDS: NICOTINE 10 MG CARTRIDGE (INHALER) IH PRN (10:02)
[2022-05-20] MEDS: NICOTINE 7 MG/24 HOURS TOPICAL PATCH TD SCH (10:02)
[2022-05-20] MEDS: PRENATAL VITAMINS W/ FOLIC ACID TABLET (FP) PO SCH (10:02)
[2022-05-20] MEDS: THIAMINE HCL 100 MG TABLET (FP) PO SCH (21:29)
[2022-05-20] MEDS: SUVOREXANT 15 MG TABLET PO PRN (21:29)
[2022-05-20] MEDS: IBUPROFEN 400 MG TABLET (FP) PO PRN (21:30)
[2022-05-21] MEDS: ACETAMINOPHEN 325 MG TABLET (FP) PO PRN (00:52)
[2022-05-21] MEDS: methaDONE HCL 40 MG DISPERSABLE TABLET PO SCH (06:28)
[2022-05-21] MEDS: NICOTINE 7 MG/24 HOURS TOPICAL PATCH TD SCH (10:07)
[2022-05-21] MEDS: PRENATAL VITAMINS W/ FOLIC ACID TABLET (FP) PO SCH (10:07)
[2022-05-21] MEDS: METHYL SALICYLATE/MENTHOL OINT 30 GM TUBE TP SCH ×2 (11:35→21:36)
[2022-05-21] MEDS: THIAMINE HCL 100 MG TABLET (FP) PO SCH (21:36)
[2022-05-21] MEDS: SUVOREXANT 15 MG TABLET PO PRN (21:38)
[2022-05-22] MEDS: methaDONE HCL 40 MG DISPERSABLE TABLET PO SCH (06:31)
[2022-05-22] MEDS: NICOTINE 10 MG CARTRIDGE (INHALER) IH PRN (09:07)
[2022-05-22] MEDS: MAG HYDROX/AL HYDROX/SIMETH 30 ML UNIT-DOSE CUP PO PRN ×2 (09:08→21:43)
[2022-05-22] MEDS: METHYL SALICYLATE/MENTHOL OINT 30 GM TUBE TP SCH ×2 (09:49→21:46)
[2022-05-22] MEDS: PRENATAL VITAMINS W/ FOLIC ACID TABLET (FP) PO SCH (09:49)
[2022-05-22] MEDS: NICOTINE 7 MG/24 HOURS TOPICAL PATCH TD SCH (09:49)
[2022-05-22] MEDS: ACETAMINOPHEN 325 MG TABLET (FP) PO PRN (19:16)
[2022-05-22] MEDS: THIAMINE HCL 100 MG TABLET (FP) PO SCH (21:41)
[2022-05-22] MEDS ORDERED: SUVOREXANT 15 MG TABLET PO PRN (22:00)
[2022-05-23] MEDS: methaDONE HCL 40 MG DISPERSABLE TABLET PO SCH (06:46)
[2022-05-23] MEDS: MAG HYDROX/AL HYDROX/SIMETH 30 ML UNIT-DOSE CUP PO PRN (06:51)
[2022-05-23 07:21] VITALS: BP 109/69; PULSE 67; RESP 16; TEMP 97.2
[2022-05-23] MEDS: NICOTINE 7 MG/24 HOURS TOPICAL PATCH TD SCH (09:55)
[2022-05-23] MEDS: PRENATAL VITAMINS W/ FOLIC ACID TABLET (FP) PO SCH (09:55)
[2022-05-23] MEDS: METHYL SALICYLATE/MENTHOL OINT 30 GM TUBE TP SCH (09:56)
[2022-05-23] MEDS: BACLOFEN 10 MG TABLET (FP) PO PRN (09:57)
== END 2022-05-23 10:40 | disposition home or self-care (01) | DRG 772 ==
LOC: YASAS 11:01 → Y5N 13:48
PROVIDERS: ADMIT Allergy & Immunology; ATTEND Allergy & Immunology
PROC: HZ42ZZZ Group Counseling for Substance Abuse Treatment, Cognitive-Behavioral (ICD-10-PCS; principal; 2022-04-27)
DX: F10.20 Alcohol dependence, uncomplicated (principal); F14.20 Cocaine dependence, uncomplicated; F11.20 Opioid dependence, uncomplicated; F17.210 Nicotine dependence, cigarettes, uncomplicated; F25.9 Schizoaffective disorder, unspecified; F31.81 Bipolar II disorder; F19.280 Other psychoactive substance dependence with psychoactive substance-induced anxiety disorder; F19.282 Other psychoactive substance dependence with psychoactive substance-induced sleep disorder; F19.24 Other psychoactive substance dependence with psychoactive substance-induced mood disorder; G35 Multiple sclerosis; M51.37 Other intervertebral disc degeneration, lumbosacral region; M54.50 Low back pain, unspecified; G89.29 Other chronic pain; Z99.89 Dependence on other enabling machines and devices; Z88.0 Allergy status to penicillin
CPT/HCPCS: 36415; 80053; 81003; 82140; 85027; 86780; 86803; 87522; 93005; 93010; C9803-CS; J0475; Q0162; U0003; U0005